=== PATIENT | female | born 1960 | race American Indian/Alaskan Native ===

== ENCOUNTER 2017-07-19 14:14 | Observation (INO) | payer BC ==
[2017-07-19] MEDS ORDERED: Sodium Chloride 0.9% 500 ML IV STA (14:38)
--- NOTE | 2017-07-19 14:47 | ED PDOC ---
Arrival/HPI - General Chief Complaint: Abdominal Pain Time Seen by Provider: 07/19/17 14:38 Historian: Patient - History of Present Illness Narrative History of Present Illness (Text): 07/19/17 14:39 Karine Arndt is 57 year old female, whose past medical history includes lymphedema, hyperlipidemia, hypertension, and diabetes, who presents to the emergency department complaining of abdominal pain for 2 days. Patient was sent by her PMD for an ultrasound of the gallbladder. Patient notes there is pain all over but is worse on the right side.Patient denies any fever, chills, chest pain, shortness of breath, nausea, vomiting, diarrhea, back pain, neck pain, headache, dizziness, or any other complaints. Symptom Onset: Gradual Symptom Course: Unchanged Activities at Onset: Light Context: Home Past Medical History - Provider Review Nursing Documentation Reviewed: Yes - Cardiac Hx Cardiac Disorders: Yes Hx Hypertension: Yes - Pulmonary Hx Respiratory Disorders: Yes Hx Asthma: Yes - Neurological Hx Neurological Disorder: No - HEENT Hx HEENT Disorder: Yes Hx Sinusitis: Yes - Renal Hx Renal Disorder: No - Endocrine/Metabolic Hx Endocrine Disorders: Yes Hx Diabetes Mellitus Type 2: Yes - Hematological/Oncological Hx Blood Disorders: No - Integumentary Hx Dermatological Disorder: No - Musculoskeletal/Rheumatological Hx Musculoskeletal Disorders: Yes Hx Arthritis: Yes Other/Comment: LYMPHADEMA - Gastrointestinal Hx Gastrointestinal Disorders: No - Genitourinary/Gynecological Hx Genitourinary Disorders: No - Psychiatric Hx Psychophysiologic Disorder: No Hx Substance Use: No - Surgical History Hx Hysterectomy: Yes Other/Comment: REMOVAL OF KIDNEY STONES Family/Social History - Physician Review Nursing Documentation Reviewed: Yes Family/Social History: Unknown Family HX Smoking Status: Former Smoker Hx Alcohol Use: No Hx Substance Use: No Allergies/Home Meds Allergies/Adverse Reactions: Allergies No Known Allergies Allergy (Verified 07/19/17 14:17) Home Medications: Home Meds Medication Instructions Recorded Confirmed Unobtainable 07/19/17 07/19/17 Review of Systems - Physician Review All systems were reviewed & negative as marked: Yes - Review of Systems Constitutional: Normal Eyes: Normal ENT: Normal Respiratory: Normal. absent: SOB, Cough Cardiovascular: Normal. absent: Chest Pain Gastrointestinal: Abdominal Pain. absent: Diarrhea, Nausea, Vomiting Genitourinary Female: Normal. absent: Dysuria, Frequency Musculoskeletal: Normal. absent: Back Pain, Neck Pain Skin: Normal. absent: Rash Neurological: Normal. absent: Headache, Dizziness Endocrine: Normal Hemo/Lymphatic: Normal Psychiatric: Normal Physical Exam - Physical Exam Narrative Physical Exam (Text): 07/19/17 14:48 Constitutional: No acute distress. Head: Normocephalic. Atraumatic. Eyes: PERRL. ENT: Moist mucous membranes. Neck: Supple. Cardiovascular: Regular rate. Chest: No tenderness. Respiratory: Clear to auscultation bilaterally. GI: RUQ tenderness. Back: No CVA tenderness. Musculoskeletal: No tenderness or swelling of extremities. Skin: No rash. Neurologic: Alert, no focal deficit. Vital Signs Reviewed: Yes Vital Signs Temp Pulse Resp BP Pulse Ox 07/19/17 20:31 78 18 122/73 99 07/19/17 18:27 97.1 F L 80 16 129/66 99 07/19/17 16:25 85 16 120/72 99 07/19/17 14:18 98.6 F 85 16 131/66 97 Temperature: Afebrile Blood Pressure: Normal Pulse: Regular Respiratory Rate: Normal Appearance: Positive for: Well-Appearing, Non-Toxic, Comfortable Pain Distress: None Mental Status: Positive for: Alert and Oriented X 3 Medical Decision Making ED Course and Treatment: 07/19/17 14:49 Impression: 57 year old female who presents to the emergency department sent by PMD for abdominal pain x 2 days. Plan: -- US abdomen -- Labs -- Lipase -- Urine Culture -- Urinalysis -- Pepcid -- Toradol -- Zofran -- Sodium Chloride -- Reassess and disposition Progress Notes: 07/19/17 16:49 U/S Abd FINDINGS: LIVER: Measures 17.0 cm. Hepatopedal blood flow. Fatty infiltration manifest ultrasonographically as increased echogenicity of the liver parenchyma. No mass. No intrahepatic bile duct dilatation. GALLBLADDER: Unremarkable. No gallstones. Incidental finding(s): Trace pericholecystic fluid. No gallbladder wall thickening. Gallstones are not identified nor is there evidence of sonographic Kwon's sign. COMMON BILE DUCT: Measures 6.7 mm. No stones. No dilatation. PANCREAS: Unremarkable as visualized. No mass. No ductal dilatation. RIGHT KIDNEY: Measures 6.7 x 12.2cm. Mild right hydronephrosis. LEFT KIDNEY: Measures 7.3 x 14.3cm. Mild left hydronephrosis. SPLEEN: Normal in size and contour. No mass. AORTA: No aneurysmal dilatation. IVC: Unremarkable. OTHER FINDINGS: None. IMPRESSION: Bilateral hydronephrosis, mild and symmetrical. Trace pericholecystic fluid common no gallbladder abnormalities. 07/19/17 22:09 CT FINDINGS: Lower thorax: No evidence of acute pathology. ABDOMEN: Liver: Unremarkable. Gallbladder and bile ducts: Unremarkable. No calcified stones. No ductal dilation. Pancreas: Unremarkable. No ductal dilation. Spleen: Unremarkable. No splenomegaly. Adrenals: Unremarkable. No mass. Kidneys and ureters: Multiple bilateral parapelvic renal cysts.No hydronephrosis or hydroureter or evidence of obstructive nephrolithiasis. 2 mm nonobstructive stone in right kidney. Stomach and bowel: Colonic diverticulosis. Inflammatory changes adjacent to mid descending colon consistent with acute diverticulitis. No abscess collection. No free air. No obstruction. Appendix: No findings to suggest acute appendicitis. PELVIS: Bladder: Unremarkable. No stones. Reproductive: Unremarkable as visualized. ABDOMEN and PELVIS: Intraperitoneal space: See above. Bones/joints: No acute fracture. No dislocation. Soft tissues: Unremarkable. Vasculature: Unremarkable. No abdominal aortic aneurysm. Lymph nodes: Unremarkable. No enlarged lymph nodes. IMPRESSION: Colonic diverticulosis. Inflammatory changes adjacent to mid descending colon consistent with acute diverticulitis. No abscess collection. No free air 07/19/17 22:21 Patient is reporting persistent pain. WBC elevated. Antibiotics ordered. Observation under Dr. Carter. - Lab Interpretations Lab Results: 07/19/17 16:25 07/19/17 16:25 Lab Results 07/19/17 17:20: Urine Color Yellow, Urine Appearance Sl cloudy, Urine pH 6.0, Ur Specific [place] 1.025, Urine Protein Negative, Urine Glucose (UA) Negative, Urine Ketones Trace H, Urine Blood Negative, Urine Nitrate Negative, Urine Bilirubin Negative, Urine Urobilinogen 0.2, Ur Leukocyte Esterase Small H, Urine RBC 0 - 2, Urine WBC Tntc, Ur Epithelial Cells 3 - 4, Urine Bacteria Few 07/19/17 16:25: Sodium 143, Potassium 3.6, Chloride 103, Carbon Dioxide 33, Anion Gap 11, BUN 17, Creatinine 0.9, Est GFR ( Amer) > 60, Est GFR (Non- Af Amer) > 60, Random Glucose 104, Calcium 9.7, Total Bilirubin 0.5, AST 32, ALT 38, Alkaline Phosphatase 74, Total Protein 6.7, Albumin 3.8, Globulin 3.0, Albumin/Globulin Ratio 1.3, Lipase 42 07/19/17 16:25: PT 12.4, INR 1.09 H, APTT 30.3 07/19/17 16:25: WBC 14.6 H, RBC 4.67, Hgb 13.1, Hct 41.3, MCV 88.4, MCH 28.1, MCHC 31.7, RDW 14.5, Plt Count 266, MPV 10.8, Gran % 64.6, Lymph % (Auto) 24.1, [place] % (Auto) 8.5 H, Eos % (Auto) 2.7, Baso % (Auto) 0.1, Gran # 9.40 H, Lymph # (Auto) 3.5 H, [place] # (Auto) 1.2 H, Eos # (Auto) 0.4, Baso # (Auto) 0.02 - RAD Interpretation Radiology Orders: 07/19/17 14:38 ABDOMEN COMPLETE [US] Stat 07/19/17 18:11 ABD & PELVIS W/O PO OR IV CONT [CT] Stat - Medication Orders Current Medication Orders: Ciprofloxacin (Cipro 400mg/200ml Dsw) 400 mg in 200 mls @ 133.3 mls/hr IVPB STAT STA PRN Reason: Protocol Stop: 07/19/17 23:40 Metronidazole (Flagyl) 500 mg in 100 mls @ 100 mls/hr IVPB STAT STA PRN Reason: Protocol Stop: 07/19/17 23:09 Discontinued Medications Famotidine (Pepcid) 20 mg IVP STAT STA Stop: 07/19/17 14:39 Last Admin: 07/19/17 16:09 Dose: 20 mg IVP Administration Document 07/19/17 16:09 MS (Rec: 07/19/17 16:09 MS [facility] [id number]) Charges for Administration # of IVP Administrations 1 Sodium Chloride (Sodium Chloride 0.9%) 500 mls @ 1,000 mls/hr IV .Q30M STA Stop: 07/19/17 15:07 Ketorolac Tromethamine (Toradol) 30 mg IVP STAT STA Stop: 07/19/17 14:39 Last Admin: 07/19/17 16:08 Dose: 30 mg MAR Pain Assessment Document 07/19/17 16:08 MS (Rec: 07/19/17 16:09 MS [facility] [id number] Pain Reassessment Is this a pain reassessment? No Sleep Is patient sleeping during reassessment? No Presence of Pain Presence of Pain Yes Pain Scale Used Pain Scale Used Numeric Location Pain Location Body Site Abdomen Description Description Intermittent Intensity of Pain at present 7 Pain Behavior Moaning Irritability Facial Grimacing Aggravating Factors Changing Position IVP Administration Document 07/19/17 16:08 MS (Rec: 07/19/17 16:09 MS [facility] [id number]) Charges for Administration # of IVP Administrations 1 Ondansetron HCl (Zofran Inj) 4 mg IVP STAT STA Stop: 07/19/17 14:39 Last Admin: 07/19/17 16:09 Dose: 4 mg IVP Administration Document 07/19/17 16:09 MS (Rec: 07/19/17 16:09 MS [facility] [id number]) Charges for Administration # of IVP Administrations 1 - Scribe Statement The provider has reviewed the documentation as recorded by the Scribe Nery Oneill All medical record entries made by the Scribe were at my direction and personally dictated by me. I have reviewed the chart and agree that the record accurately reflects my personal performance of the history, physical exam, medical decision making, and the department course for this patient. I have also personally directed, reviewed, and agree with the discharge instructions and disposition. Disposition/Present on Arrival - Present on Arrival Any Indicators Present on Arrival: No History of DVT/PE: No History of Uncontrolled Diabetes: No Urinary Catheter: No History of Decub. Ulcer: No History Surgical Site Infection Following: None - Disposition Have Diagnosis and Disposition been Completed?: Yes Diagnosis: UTI (urinary tract infection), Diverticulitis Disposition: HOSPITALIZED Disposition Time: 22:12 Patient Plan: Observation Patient Problems: Current Active Problems Problem Status Onset UTI (urinary tract infection) Acute Diverticulitis Acute Condition: FAIR Referrals: Will Carter MD [Primary Care Provider] - Follow up with primary Forms: [employer] (Slovak)
--- NOTE | 2017-07-19 16:43 | US ---
HISTORY: RUQ pain COMPARISON: None. TECHNIQUE: Sonographic evaluation of the abdomen. FINDINGS: LIVER: Measures 17.0 cm. Hepatopedal blood flow. Fatty infiltration manifest ultrasonographically as increased echogenicity of the liver parenchyma. No mass. No intrahepatic bile duct dilatation. GALLBLADDER: Unremarkable. No gallstones. Incidental finding(s): Trace pericholecystic fluid. No gallbladder wall thickening. Gallstones are not identified nor is there evidence of sonographic Kwon's sign. COMMON BILE DUCT: Measures 6.7 mm. No stones. No dilatation. PANCREAS: Unremarkable as visualized. No mass. No ductal dilatation. RIGHT KIDNEY: Measures 6.7 x 12.2cm. Mild right hydronephrosis. LEFT KIDNEY: Measures 7.3 x 14.3cm. Mild left hydronephrosis. SPLEEN: Normal in size and contour. No mass. AORTA: No aneurysmal dilatation. IVC: Unremarkable. OTHER FINDINGS: None. IMPRESSION: Bilateral hydronephrosis, mild and symmetrical. Trace pericholecystic fluid common no gallbladder abnormalities.
[2017-07-19 16:44] LABS: INR 1.09 (0.93-1.08); PARTIAL THROMBOPLASTIN TIME 30.3 Seconds (25.1-36.5); PROTHROMBIN TIME 12.4 SECONDS (9.4-12.5)
[2017-07-19 16:45] LABS: BASO # 0.02 K/mm3 (0.0-2.0); BASO % 0.1 % (0.0-3.0); EOS # 0.4 (0.0-0.7); EOS % 2.7 % (1.5-5.0); GRAN # 9.4 (1.4-6.5); GRAN % 64.6 % (50.0-68.0); HEMOGLOBIN 13.1 g/dL (12.0-16.0); LYMPH # 3.5 (1.2-3.4); LYMPH % 24.1 % (22.0-35.0); MEAN CELL VOLUME 88.4 fl (80.0-105.0); MEAN CORPUSCULAR HEMOGLOBIN 28.1 pg (25.0-35.0); MEAN CORPUSCULAR HGB CONC 31.7 g/dl (31.0-37.0); MEAN PLATELET VOLUME 10.8 fl (7.0-11.0); MONO # 1.2 (0.1-0.6); MONO % 8.5 % (1.0-6.0); RBC 4.67 10^6/uL (3.5-6.1); RED CELL DISTRIBUTION WIDTH 14.5 % (11.5-14.5); WHITE BLOOD COUNT 14.6 10^3/ul (4.5-11.0)
[2017-07-19 17:18] LABS: ALB/GLOB RATIO 1.3 (1.1-1.8); ALBUMIN 3.8 g/dL (3.0-4.8); ALT/SGPT 38 U/L (7-56); AST/SGOT 32 U/L (14-36); BLOOD UREA NITROGEN 17 mg/dL (7-21); CALCIUM 9.7 mg/dL (8.4-10.5); GFR AFRICAN-AMERICAN > 60; GFR NON-AFRICAN AMERICAN > 60; LIPASE 42 U/L (23-300)
[2017-07-19 17:29] LABS: URINE BILIRUBIN NEGATIVE (NEGATIVE); URINE BLOOD NEGATIVE (NEGATIVE); URINE GLUCOSE (UA) NEGATIVE (NEGATIVE); URINE LEUKOCYTE ESTERASE SMALL Leu/uL (NEGATIVE); URINE PROTEIN NEGATIVE mg/dL (<30 mg/dL); URINE UROBILINOGEN 0.2 E.U./dL (<1 E.U./dL)
[2017-07-19 17:30] LABS: URINE APPEARANCE SL CLOUDY (CLEAR); URINE COLOR YELLOW (YELLOW)
[2017-07-19 17:40] LABS: URINE BACTERIA FEW (NEG); URINE RBC 0 - 2 /hpf (0-2); URINE WBC TNTC /hpf (0-6)
[2017-07-19] MEDS ORDERED: Ciprofloxacin 400mg/200ml D5W 400 MG/200 ML BAG IVPB STA (22:10)
[2017-07-19] MEDS ORDERED: metroNIDAZOLE IV 500 mg/100 ml 500 MG/100 ML BAG IVPB STA (22:10)
[2017-07-20 02:42] VITALS: RESP 20; BMI 44.4
[2017-07-20] MEDS: Insulin Reg-LOW-Coverage SC SCH ×4 (08:06→21:39)
--- NOTE | 2017-07-20 09:28 | CT ---
PROCEDURE: CT Abdomen and Pelvis without intravenous contrast HISTORY: hydronephrosis, with uti COMPARISON: None. TECHNIQUE: Unenhanced study. Neither oral nor intravenous contrast administered. Radiation dose: Total exam DLP = 1773.24 mGy-cm. This CT exam was performed using one or more of the following dose reduction techniques: Automated exposure control, adjustment of the mA and/or kV according to patient size, and/or use of iterative reconstruction technique. FINDINGS: LOWER THORAX: Unremarkable. LIVER: Unremarkable. No gross lesion or ductal dilatation. GALLBLADDER AND BILE DUCTS: Unremarkable. PANCREAS: Unremarkable. No gross lesion or ductal dilatation. SPLEEN: Unremarkable. ADRENALS: Unremarkable. No mass. KIDNEYS AND URETERS: 2 mm calculus lower pole collecting system on the right. Incidental finding(s): Multiple bilateral parapelvic cysts. VASCULATURE: Unremarkable. No aortic aneurysm. BOWEL: Acute diverticulitis involving the descending colon common the affected segment approximately 7 cm. Extensive diverticular disease identified throughout remainder of the colon. APPENDIX: Unremarkable. Normal appendix. PERITONEUM: Unremarkable. No free fluid. No free air. LYMPH NODES: Unremarkable. No enlarged lymph nodes. BLADDER: Unremarkable. REPRODUCTIVE: Unremarkable. BONES: No acute fracture. OTHER FINDINGS: None. IMPRESSION: Segmental acute diverticulitis descending colon. No drainable collection, loculated air, free air. Additional benign and/or incidental findings described above. Concordant results (preliminary interpretation) provided by [employer]. Procedure Completed: 19:00 Preliminary ([facility]) Report: Dictated and Authenticated: 21:17 Final Interpretation: 09:24 July 20, 2017.
[2017-07-20] MEDS ORDERED: Ciprofloxacin 400mg/200ml D5W 400 MG/200 ML BAG IVPB SCH (10:00)
[2017-07-20] MEDS: metroNIDAZOLE IV 500 mg/100 ml 500 MG/100 ML BAG IVPB SCH ×2 (14:42→21:31)
[2017-07-20] MEDS: cefTRIAXone 1 gm 1 GM/100 ML BAG IVPB SCH (18:32)
--- NOTE | 2017-07-20 19:48 | HP ---
HISTORY OF PRESENT ILLNESS: A 57-year-old black female with history of hypertension, history of lymphedema bilaterally. Patient admitted to the hospital with severe abdominal pain, was found to have diverticulitis on CT. Elevated white count of 14,600 with left shift. Vital signs are stable. Otherwise, tolerating diet. Abdomen is more soft today than it was yesterday. She has less guarding, less rebound, and she does have tenderness in the right upper quadrant and in the left lower quadrant. She is on Cipro and Flagyl. Patient states that this began approximately 3 to 4 days prior to admission. She is a nondrinker, nonsmoker. She has no travel history. No positive family history of diverticulitis or diverticulosis in the past. She had a colonoscopy approximately 1 year ago, which was normal. PHYSICAL EXAMINATION: GENERAL: She is a well-developed obese black female in no apparent distress this morning. HEENT: Essentially within normal limits. HEART: Reveals regular sinus rhythm. CHEST: Clear to auscultation and percussion. ABDOMEN: Bowel sounds are hypoactive. There is tenderness in the right upper and in the left lower quadrant. There is no guarding, no rebound, and no masses palpable. EXTREMITIES: Show chronic 2+ pedal edema to the knees. IMPRESSION: Diverticulitis with history of lymphedema. Will Carter MD [facility] # [id number]
[2017-07-21] MEDS: metroNIDAZOLE IV 500 mg/100 ml 500 MG/100 ML BAG IVPB SCH ×2 (05:32→13:41)
[2017-07-21 07:31] LABS: BASO # 0.03 K/mm3 (0.0-2.0); BASO % 0.3 % (0.0-3.0); EOS # 0.5 (0.0-0.7); EOS % 4.7 % (1.5-5.0); GRAN # 5.52 (1.4-6.5); GRAN % 53.5 % (50.0-68.0); HEMOGLOBIN 12.1 g/dL (12.0-16.0); LYMPH # 3.2 (1.2-3.4); LYMPH % 31.4 % (22.0-35.0); MEAN CELL VOLUME 87.9 fl (80.0-105.0); MEAN CORPUSCULAR HEMOGLOBIN 27.2 pg (25.0-35.0); MEAN CORPUSCULAR HGB CONC 30.9 g/dl (31.0-37.0); MEAN PLATELET VOLUME 10.5 fl (7.0-11.0); MONO % 10.1 % (1.0-6.0); RBC 4.45 10^6/uL (3.5-6.1); RED CELL DISTRIBUTION WIDTH 14.3 % (11.5-14.5); WHITE BLOOD COUNT 10.3 10^3/ul (4.5-11.0)
--- NOTE | 2017-07-21 07:38 | CON ---
DATE: 07/20/2017 REASON FOR CONSULTATION: Abdominal pain and colitis. HISTORY OF PRESENT ILLNESS: This 57-year-old patient noticed abdominal pain for the past 2 days, all over the abdomen, mainly on the left side. Patient did have some discomfort on the right side before it improved. No vomiting. No diarrhea. No similar episodes before. PAST MEDICAL HISTORY: Positive for lymphedema, hypertension, dyslipidemia, diabetes mellitus. Other past medical history is significant for kidney stones, was followed by Dr. Schwartz. SURGICAL HISTORY: Positive for hysterectomy and removal of kidney stones, colonoscopy 2yr ago , history of diabetes mellitus. ALLERGIES: NO KNOWN DRUG ALLERGIES. REVIEW OF SYSTEMS: Positive as above. Other systems reviewed. PHYSICAL EXAMINATION: GENERAL: Patient is lying on the bed, not in acute distress. VITAL SIGNS: Temperature is 97.6, pulse 73, blood pressure 127/84, respirations 20, O2 saturation 100%. HEENT: Atraumatic, anicteric. NECK: Supple. HEART: S1 and S2 heard. LUNGS: Bilateral air entry present. ABDOMEN: Soft. There is no mass palpable. Patient has some tenderness in the left side of the abdomen. There is no rebound or guarding. EXTREMITIES: No cyanosis, no clubbing. NEUROLOGICAL: Alert, oriented, moves all the extremities LABORATORY DATA: Hemoglobin 13.1, hematocrit 41.3, WBC is 14.6, platelets 266. Chemistry is essentially unremarkable. Urinalysis shows leukocyte esterase with urine wbc is too many to count. The CT scan of the abdomen and pelvis was reviewed and compared with the sonogram, what appears to be like a bilateral mild hydronephrosis, possible also parapelvic cyst. There is inflammation in the segment of the colon in the descending colon - involvement closer to the splenic flexure area. There are some inflammatory changes and diverticulosis. IMPRESSION: 1. Acute diverticulitis versus colitis. 2. Hydronephrosis, parapelvic cyst. 3. Patient does have significant renal angle tenderness, rule out pyelonephritis. Urinalysis shows too many wbc to count. RECOMMENDATIONS: 1. Clear liquid diet. 2. Patient received a dose of Cipro, but it was not continued. We will start the patient on ceftriaxone and continue the Flagyl. 3. Urine culture. 4. Get a urological consultation. I also discussed with Dr. Carter regarding this patient. Thank you very much for allowing us to participate in the care of the patient. Babar Hollins MD [facility]
[2017-07-21 08:39] VITALS: BP 121/61; PULSE 73; TEMP 97.9; O2SAT 100
[2017-07-21] MEDS: Insulin Reg-LOW-Coverage SC SCH ×2 (09:27→11:54)
[2017-07-21] MEDS: cefTRIAXone 1 gm 1 GM/100 ML BAG IVPB SCH (09:28)
--- NOTE | 2017-07-21 23:11 | PN ---
DATE: 07/21/2017 SUBJECTIVE: This patient was seen and evaluated earlier today. The patient's family was at bedside, clinically feels much improved. Her abdominal discomfort has significantly improved. PHYSICAL EXAMINATION: VITAL SIGNS: Temperature is 97.9, pulse 79, blood pressure is 121/61, respirations 20, O2 saturations 100%. HEENT: Atraumatic, anicteric. NECK: Supple. HEART: S1 and S2 heard. LUNGS: Bilateral air entry present. ABDOMEN: There is mild tenderness present in the left side of the abdomen. There is no rebound or guarding. The patient does have still has some renal angle tenderness. LABORATORY DATA: Hemoglobin 12.1, hematocrit 39.1, WBC is 10.3, platelets 270. IMPRESSION: 1. Acute diverticulitis versus segmental colitis. The differential diagnoses should include a diverticulitis, ischemic colitis and also inflammatory bowel disease to be considered. The patient mentioned to me she did have a colonoscopy within two years' time and the doctor told her that everything was okay, come back in 10 years for surveillance. 2. Bilateral hydronephrosis and parapelvic cyst. The patient does have some renal angle tenderness. Urinalysis was positive for WBC count,TNTC Cultures, urine culture showed only 10,000 to 50,000 colonies contaminant. The patient appears to be clinically improving. The patient had seen Dr. Schwartz in the past for kidney stones. Plan is, I recommended the patient to follow up with Dr. Schwartz. 3. The patient was advised to follow up with GI. Complete the antibiotic course for 10 days. Advise to follow up with Dr. Carter and advised Gastroenterological followup. Thank you very much for allowing us to participate in the care of the patient. Babar Hollins MD [facility]
--- NOTE | 2017-07-22 05:33 | DS ---
HISTORY OF PRESENT ILLNESS: A 57-year-old black female in hospital with diffuse abdominal pain, was found to have left-sided diverticulitis and also mild bilateral hydronephrosis, history of renal stones in the past, non-obstructing stones present on CT. Patient is on IV antibiotics. She is afebrile. Vital signs are stable. Her white count has dropped. She is tolerating her diet. Her abdomen is soft. Patient will be discharged home on p.o. Cipro and Flagyl to continue course for diverticulitis, and a no-residue diet at this point. FINAL DISCHARGE DIAGNOSES: Acute diverticulitis, history of lymphedema, bilateral mild hydronephrosis, history of nephrolithiasis in the past, hypertension. Will Carter MD [facility] # [id number]
== END 2017-07-21 15:42 | disposition home or self-care (01) ==
LOC: ED 14:14 → ERH 22:18 → 5RNO 07-20 00:30
PROVIDERS: ADMIT Internal Medicine; ATTEND Internal Medicine
DX: K57.32 Diverticulitis of large intestine without perforation or abscess without bleeding (principal); N13.30 Unspecified hydronephrosis; N39.0 Urinary tract infection, site not specified; I10 Essential (primary) hypertension; E78.5 Hyperlipidemia, unspecified; E11.9 Type 2 diabetes mellitus without complications; I89.0 Lymphedema, not elsewhere classified; N94.89 Other specified conditions associated with female genital organs and menstrual cycle; Z87.442 Personal history of urinary calculi; Z90.710 Acquired absence of both cervix and uterus
CPT/HCPCS: 36415; 74176; 76700; 80053; 81001; 82948; 83690; 85025; 85610; 85730; 87086; 96365; 96368; 96375; 96376; 99284; G0378; J0696; J0744; J1885; J2405; J7040

== ENCOUNTER 2018-02-25 11:40 | Emergency (ER) | payer BC ==
[2018-02-25 11:41] VITALS: BMI 44.4
[2018-02-25 11:54] VITALS: RESP 18
--- NOTE | 2018-02-25 12:40 | ED PDOC ---
Arrival/HPI - General Historian: Patient - History of Present Illness Narrative History of Present Illness (Text): 02/25/18 12:36 58 yo F with pmhx of HTN, HLD, chronic lymphedema, DM, vertigo presenting to ED with lightheadedness and nausea since 5 AM this morning. Patient states she has had vertigo symptoms in the past and that current symptoms are similar. She states she awoke this morning and c/o severe nausea and lightheadedness that worsen with movement of her head. Denies any headaches, blurry vision or change in vision, vomiting. No chest pain, palpitations, sob, cough, abdominal pain, diarrhea/constipation, dysuria, or changes in stool. PMHx: HTN, HLD, chronic lymphedema, DM, vertigo PSHx: denies Allergies: NKDA Home Medications: as per chart Social Hx: denies alcohol, tobacco, illicit drug use. FHx: noncontributory PMD: Dr. Catrer Time/Duration: 4-6 hours Symptom Onset: Sudden Symptom Course: Unchanged Quality: Other (Dizziness) Severity Level: Severe Activities at Onset: Light <Ian Cline - Last Filed: 02/25/18 16:13> <Gera Schultz - Last Filed: 02/25/18 16:24> - General Chief Complaint: Dizziness/Lightheaded Time Seen by Provider: 02/25/18 11:41 Past Medical History - Provider Review Nursing Documentation Reviewed: Yes - Reproductive Menopause: No - Cardiac Hx Cardiac Disorders: Yes Hx Hypertension: Yes - Pulmonary Hx Respiratory Disorders: Yes Hx Asthma: Yes - Neurological Hx Neurological Disorder: No - HEENT Hx HEENT Disorder: Yes - Renal Hx Renal Disorder: No - Endocrine/Metabolic Hx Endocrine Disorders: Yes Hx Diabetes Mellitus Type 2: Yes - Hematological/Oncological Hx Blood Disorders: No - Integumentary Hx Dermatological Disorder: No - Musculoskeletal/Rheumatological Hx Falls: No - Gastrointestinal Hx Gastrointestinal Disorders: No - Genitourinary/Gynecological Hx Genitourinary Disorders: No - Psychiatric Hx Psychophysiologic Disorder: No Hx Substance Use: No - Surgical History Hx Hysterectomy: Yes Other/Comment: REMOVAL OF KIDNEY STONES - Anesthesia Hx Anesthesia: Yes Hx Anesthesia Reactions: No Hx Malignant Hyperthermia: No <Ian Cline - Last Filed: 02/25/18 16:13> Family/Social History - Physician Review Nursing Documentation Reviewed: Yes Family/Social History: Unknown Family HX Smoking Status: Never Smoked Hx Alcohol Use: No Hx Substance Use: No <Ian Cline - Last Filed: 02/25/18 16:13> Allergies/Home Meds <Ian Cline - Last Filed: 02/25/18 16:13> <MarionGera - Last Filed: 02/25/18 16:24> Allergies/Adverse Reactions: Allergies No Known Allergies Allergy (Verified 07/19/17 14:17) Home Medications: Home Meds Medication Instructions Recorded Confirmed Aspirin/Calcium Carbonate [Karla 81 mg PO DAILY 07/20/17 07/20/17 Women's Aspirin Tablet] Atorvastatin 40 mg PO DAILY 07/20/17 07/20/17 Ezetimibe/Simvastatin 10 mg PO DAILY 07/20/17 07/20/17 [Ezetimibe-Simvastatin 10-10 mg] Furosemide [Lasix] 40 mg PO DAILY 07/20/17 07/20/17 Linagliptin [Tradjenta] 5 mg PO DAILY 07/20/17 07/20/17 Montelukast Sodium 10 mg PO DAILY 07/20/17 07/20/17 Multivit-Min/FA/Lycopen/Lutein 1 tab PO DAILY 07/20/17 07/20/17 [Centrum Silver Tablet] Nexium 40 mg PO DAILY 07/20/17 07/20/17 Valsartan-Hctz 160-12.5 mg Tab 1 tab PO DAILY 07/20/17 07/20/17 Vitamin D3- 1,000 Unit Tab 1 gel PO DAILY 07/20/17 07/20/17 Review of Systems - Review of Systems Constitutional: Normal Eyes: Normal. absent: Vision Changes, Photophobia, Eye Pain ENT: Sinus Congestion. absent: Hearing Changes, Tinnitus, Rhinorrhea Respiratory: Normal. absent: SOB, Cough, Wheezing Cardiovascular: absent: Chest Pain, Palpitations Gastrointestinal: Normal. absent: Abdominal Pain, Stool Changes, Constipation, Diarrhea, Nausea, Vomiting Genitourinary Female: Normal Musculoskeletal: Normal Skin: Normal. absent: Rash, Skin Lesions, Abscess Neurological: Dizziness. absent: Headache, Focal Weakness, Gait Changes, Facial Droop Endocrine: Normal Hemo/Lymphatic: Other (chronic lymphedema) Psychiatric: Normal <Ian Cline - Last Filed: 02/25/18 16:13> Physical Exam Vital Signs Reviewed: Yes Vital Signs Temp Pulse Resp BP Pulse Ox 02/25/18 11:41 97.9 F 67 18 149/84 100 Temperature: Afebrile Blood Pressure: Normal Pulse: Regular Respiratory Rate: Normal Appearance: Positive for: Non-Toxic Pain Distress: None Mental Status: Positive for: Alert and Oriented X 3 Finger Stick Blood Glucose: 122 - Systems Exam Head: Present: Atraumatic, Normocephalic Pupils: Present: PERRL Extroacular Muscles: Present: EOMI Conjunctiva: Present: Normal Ears: Present: Normal Mouth: Present: Moist Mucous Membranes Pharnyx: Present: Normal Nose (External): Present: Atraumatic Nose (Internal): Present: Septal Deviation (chronic L septal deviation) Neck: Present: Normal Range of Motion Respiratory/Chest: Present: Clear to Auscultation, Good Air Exchange. No: Respiratory Distress, Accessory Muscle Use, Wheezes, Rales, Rhonchi Cardiovascular: Present: Regular Rate and Rhythm, Normal S1, S2 Abdomen: Present: Normal Bowel Sounds. No: Tenderness, Distention, Peritoneal Signs, Rebound, Guarding, Mass/Organomegaly Back: Present: Normal Inspection Upper Extremity: Present: Normal Inspection, Normal ROM, NORMAL PULSES, Capillary Refill < 2s. No: Cyanosis, Edema, Tenderness, Swelling Lower Extremity: Present: Normal Inspection, Edema (chronic), NORMAL PULSES, Normal ROM, Capillary Refill < 2 s. No: CALF TENDERNESS, Tenderness, Swelling Neurological: Present: CN II-XII Intact, Speech Normal Skin: Present: Warm, Dry, Normal Color. No: Rashes Psychiatric: Present: Alert, Oriented x 3, Normal Insight, Normal Concentration <SonIan - Last Filed: 02/25/18 16:13> Vital Signs Temp Pulse Resp BP Pulse Ox 02/25/18 11:41 97.9 F 67 18 149/84 100 - Systems Exam Neck: No: Meningeal Signs, MIDLINE TENDERNESS Neurological: Present: GCS=15, Motor Func Grossly Intact, Normal Sensory Function, Normal Cerebellar Funct, Gait Normal <Gera Schultz - Last Filed: 02/25/18 16:24> Medical Decision Making ED Course and Treatment: 02/25/18 12:46 Impression: 58 yo F with pmhx of HTN, HLD, DM, chronic lymphedema, vertigo symptoms presenting with dizziness and nausea, likely BPV Plan: --CBC, CMP --trop --EKG --CT head w.o contrast --zofran --antivert --reassess and disposition 02/25/18 15:33 Patient tolerated antivert well, feels better than upon arrival Labs demonstrated WBC 13.8, pt made aware of findings Awaiting UA and CXR to r/o infection - RAD Interpretation Radiology Orders: 02/25/18 12:28 HEAD W/O CONTRAST [CT] Stat - EKG Interpretation EKG Interpretation (Text): 02/25/18 13:50 NSR @ 60 bpm, L axis deviation, no STEMI Interpreted by ED Physician: Yes Type: 12 lead EKG - Medication Orders Current Medication Orders: Discontinued Medications Meclizine HCl (Antivert) 12.5 mg PO STAT STA Stop: 02/25/18 12:27 Ondansetron HCl (Zofran Tab) 4 mg PO STAT STA Stop: 02/25/18 12:27 <Ian Cline - Last Filed: 02/25/18 16:13> ED Course and Treatment: 02/25/18 13:13 58 year old female presents to the Emergency Department complaining of dizziness and nausea. Likely BPV given previous symptoms, seen in this ED. No signs of central vertigo on my exam. No lightheadedness, cp or SOB. No falls or trauma. No TOMLINSON. Neuro exam fully normal except horizontal nystagmus back towards midline which fatigues on EOMI testing. Pending, labs, imaging, reassessment. In agreement with resident note which contains more details about the patient. Patient seen and evaluated with resident. Came up with plan and treatment together. 02/25/18 15:40 pt notes improvement, no longer vertiginous. No signs of central vertigo on repeat exam. slightly elevated WBC. Will seek UA and CXR. 02/25/18 16:23 Ua 5-10 wbc, will rx. NO CVAT or fever. CXR unremarkable clear for d/c home - RAD Interpretation Radiology Orders: 02/25/18 12:28 HEAD W/O CONTRAST [CT] Stat - Medication Orders Current Medication Orders: Discontinued Medications Meclizine HCl (Antivert) 12.5 mg PO STAT STA Stop: 02/25/18 12:27 Ondansetron HCl (Zofran Tab) 4 mg PO STAT STA Stop: 02/25/18 12:27 <Gera Schultz - Last Filed: 02/25/18 16:24> - PA / WET CROWN BLOCKING OPERATOR / Resident Statement / has reviewed & agrees with the documentation as recorded. MD/DO has examined the patient and agrees with the treatment plan. - Scribe Statement The provider has reviewed the documentation as recorded by the Scribe Gildardo Shetty. All medical record entries made by the Scribe were at my direction and personally dictated by me. I have reviewed the chart and agree that the record accurately reflects my personal performance of the history, physical exam, medical decision making, and the department course for this patient. I have also personally directed, reviewed, and agree with the discharge instructions and disposition. <Gera Schultz - Last Filed: 02/25/18 16:24> Disposition/Present on Arrival - Present on Arrival Any Indicators Present on Arrival: Yes History of DVT/PE: No History of Uncontrolled Diabetes: Yes Urinary Catheter: No History of Decub. Ulcer: No History Surgical Site Infection Following: None - Disposition Have Diagnosis and Disposition been Completed?: Yes Disposition Time: 16:14 <Ian Cline - Last Filed: 02/25/18 16:13> <Gera Schultz - Last Filed: 02/25/18 16:24> - Disposition Diagnosis: UTI (urinary tract infection), Vertigo Disposition: HOME/ ROUTINE Patient Problems: Current Active Problems Problem Status Onset UTI (urinary tract infection) Acute Vertigo Acute Condition: GOOD Discharge Instructions (ExitCare): Vertigo (a Type of Dizziness), Urinary Tract Infection, Adult (DC) Additional Instructions: JACE BARNES, thank you for letting us take care of you today. Your provider was Gera Schultz and you were treated for DIZZINESS. The emergency medical care you received today was directed at your acute symptoms. If you were prescribed any medication, please fill it and take as directed. It may take several days for your symptoms to resolve. Return to the Emergency Department if your symptoms worsen, do not improve, or if you have any other problems. Please contact your doctor or call one of the physicians/clinics you have been referred to that are listed on the Patient Visit Information form that is included in your discharge packet. Bring any paperwork you were given at discharge with you along with any medications you are taking to your follow up visit. Our treatment cannot replace ongoing medical care by a primary care provider outside of the emergency department. Thank you for allowing the [facility] team to be part of your care today. If you had an X-Ray or CT scan: A Radiologist will review the ED reading if any change in treatment is needed we will contact you. If you had a blood, urine, or wound culture: It will take several days for the results, if any change in treatment is needed we will contact you. If you had an STI test: It will take 48 hours for the results. Please call after 1 week if you have not heard back. Prescriptions: Cephalexin [Keflex] 250 mg PO QID 5 Days #20 capsule Meclizine [Antivert] 12.5 mg PO Q12H PRN 3 Days #6 tab PRN Reason: Dizziness Referrals: Will Carter MD [Primary Care Provider] - Follow up with primary Talon Veloz MD [Staff Provider] - Follow up with primary Forms: [email or web address] (Thai)
--- NOTE | 2018-02-25 13:58 | CT ---
Date of service: 02/25/2018 PROCEDURE: CT HEAD WITHOUT CONTRAST. HISTORY: chronic dizziness COMPARISON: None available. TECHNIQUE: Axial computed tomography images were obtained through the head/brain without intravenous contrast. Radiation dose: Total exam DLP = 1029 mGy-cm. This CT exam was performed using one or more of the following dose reduction techniques: Automated exposure control, adjustment of the mA and/or kV according to patient size, and/or use of iterative reconstruction technique. FINDINGS: HEMORRHAGE: No intracranial hemorrhage. BRAIN: No mass effect or edema. No atrophy or chronic microvascular ischemic changes. VENTRICLES: Unremarkable. No hydrocephalus. CALVARIUM: Unremarkable. PARANASAL SINUSES: Unremarkable as visualized. No significant inflammatory changes. MASTOID AIR CELLS: Unremarkable as visualized. No inflammatory changes. OTHER FINDINGS: None. IMPRESSION: No acute intracranial findings
[2018-02-25 14:56] LABS: BASO # 0.02 K/mm3 (0.0-2.0); BASO % 0.1 % (0.0-3.0); EOS # 0.3 (0.0-0.7); EOS % 2.5 % (1.5-5.0); GRAN # 9.02 (1.4-6.5); GRAN % 65.3 % (50.0-68.0); LYMPH # 3.4 (1.2-3.4); LYMPH % 24.5 % (22.0-35.0); MEAN CELL VOLUME 86.8 fl (80.0-105.0); MEAN CORPUSCULAR HEMOGLOBIN 27.9 pg (25.0-35.0); MEAN CORPUSCULAR HGB CONC 32.2 g/dl (31.0-37.0); MEAN PLATELET VOLUME 10.7 fl (7.0-11.0); MONO # 1.1 (0.1-0.6); MONO % 7.6 % (1.0-6.0); RBC 5.01 10^6/uL (3.5-6.1); RED CELL DISTRIBUTION WIDTH 14.4 % (11.5-14.5); WHITE BLOOD COUNT 13.8 10^3/ul (4.5-11.0)
[2018-02-25 15:03] LABS: ALB/GLOB RATIO 1.3 (1.1-1.8); ALBUMIN 4.3 g/dL (3.0-4.8); ALT/SGPT 45 U/L (7-56); AST/SGOT 32 U/L (14-36); BLOOD UREA NITROGEN 15 mg/dL (7-21); CALCIUM 10.2 mg/dL (8.4-10.5); GFR NON-AFRICAN AMERICAN > 60
[2018-02-25 15:15] LABS: TROPONIN I < 0.01 ng/mL
[2018-02-25 15:33] LABS: PH,URINE 7.5 (4.7-8.0); URINE BILIRUBIN NEGATIVE (NEGATIVE); URINE BLOOD NEGATIVE (NEGATIVE); URINE GLUCOSE (UA) NEGATIVE (NEGATIVE); URINE LEUKOCYTE ESTERASE MODERATE Leu/uL (NEGATIVE); URINE PROTEIN NEGATIVE mg/dL (<30 mg/dL); URINE UROBILINOGEN 0.2 E.U./dL (<1 E.U./dL)
[2018-02-25 15:34] LABS: URINE COLOR LIGHT YELLOW (YELLOW)
[2018-02-25 15:35] LABS: URINE APPEARANCE CLEAR (CLEAR)
--- NOTE | 2018-02-25 15:42 | RAD ---
Date of service: 02/25/2018 HISTORY: r/o focal infection COMPARISON: No prior. FINDINGS: LUNGS: The lungs are well inflated and clear. PLEURA: No pleural effusions or pneumothorax. CARDIOVASCULAR: There is mild cardiomegaly. No aortic atherosclerotic calcification present. OSSEOUS STRUCTURES: Within normal limits for the patient's age. VISUALIZED UPPER ABDOMEN: Normal. OTHER FINDINGS: None. IMPRESSION: No active pulmonary disease.
[2018-02-25 15:43] LABS: URINE BACTERIA TRACE (NEG); URINE EPITHELIAL CELLS 0 - 2 /hpf (0-5); URINE RBC NEGATIVE /hpf (0-2)
--- NOTE | 2018-02-25 15:45 | CARD ---
APPROVED REPORT Date of service: 02/25/2018 EKG Measurement Heart [id number] <Conclusion> Normal sinus rhythm Left axis deviation Moderate voltage criteria for LVH, may be normal variant Cannot rule out Septal infarct, age undetermined Abnormal ECG
[2018-02-25 16:39] VITALS: BP 136/70; PULSE 65; TEMP 98.2; O2SAT 95
== END 2018-02-25 16:33 | disposition home or self-care (01) ==
LOC: ED 11:40
DX: N39.0 Urinary tract infection, site not specified (principal); R42 Dizziness and giddiness; I10 Essential (primary) hypertension; E11.9 Type 2 diabetes mellitus without complications